=== PATIENT | female | born 1960 | race Caucasian/White ===

== ENCOUNTER 2018-08-25 10:19 | Outpatient (CLI) | payer BC ==
[~2018-08-25] VITALS: Ht 170.2 cm; Wt 80.0 kg
--- NOTE | 2018-08-25 10:40 | NUR ---
ear for PICC evaluation. PICC intact left upper arm. Dressing dated yesterday. No signs or symptoms IV complications except unable to flush PICC catheter. Patient reports she is receiving IV antibiotics at home due to an implanted port infection. The implanted port has been removed. Attempted to flush PICC catheter and unable to flush. Changed and catheter flushed with 10 mL normal saline without difficulty with good blood return noted. No other concerns from patient. Patient is instructed to contact [facility] and/or return to the express unit for issues with PICC line.
[2018-08-25 12:00] VITALS: BP 104/68; PULSE 78; TEMP 97.7
[2018-08-25] MEDS ORDERED: ZYLOPRIM 100MG100 MG PO (14:10)
[2018-08-25] MEDS ORDERED: SOMA 350MG350 MG/TAB PO (14:11)
[2018-08-25] MEDS ORDERED: ATIVAN 0.50.5 MG/TAB PO (14:11)
[2018-08-25] MEDS ORDERED: NEURONTIN300 MG/CAP PO (14:12)
[2018-08-25] MEDS ORDERED: LASIX 20MG TABL20 MG PO (14:12)
[2018-08-25] MEDS ORDERED: PRINIVIL40 MG PO (14:13)
[2018-08-25] MEDS ORDERED: NORCO 325 MG-101 TAB PO (14:13)
[2018-08-25] MEDS ORDERED: TOPROL XL100 MG PO (14:14)
[2018-08-25] MEDS ORDERED: NYSTATIN OR100 MU/ML PO (14:15)
[2018-08-25] MEDS ORDERED: MS CONTIN 115 MG/TAB PO (14:15)
[2018-08-25] MEDS ORDERED: MORPHINE 1515 MG/TAB PO (14:15)
[2018-08-25] MEDS ORDERED: ZYPREXA ZYDIS5 MG PO (14:16)
[2018-08-25] MEDS ORDERED: ZOFRAN 4MG T4 MG/TAB PO (14:16)
[2018-08-25] MEDS ORDERED: PRAVACHOL 40MG40 MG PO (14:17)
[2018-08-25] MEDS ORDERED: K-DUR20 MEQ (14:17)
[2018-08-25] MEDS ORDERED: ULTRAM 50MG TAB50 MG PO (14:18)
== END 2018-08-25 18:00 | disposition home or self-care (01) ==
LOC: EUO 10:19
DX: C34.11 Malignant neoplasm of upper lobe, right bronchus or lung (principal)

== ENCOUNTER 2019-01-19 17:48 | Emergency (ER) | payer BC ==
[~2019-01-19] VITALS: Ht 170.2 cm; Wt 81.8 kg
[~2019-01-19 17:48] MED LIST: ATIVAN 0.50.5 MG/TAB PO; K-DUR20 MEQ; LASIX 20MG TABL20 MG PO; MORPHINE 1515 MG/TAB PO; MS CONTIN 115 MG/TAB PO; NEURONTIN300 MG/CAP PO; NORCO 325 MG-101 TAB PO; NYSTATIN OR100 MU/ML PO; PRAVACHOL 40MG40 MG PO; PRINIVIL40 MG PO; SOMA 350MG350 MG/TAB PO; TOPROL XL100 MG PO; ULTRAM 50MG TAB50 MG PO; ZOFRAN 4MG T4 MG/TAB PO; ZYLOPRIM 100MG100 MG PO; ZYPREXA ZYDIS5 MG PO
[2019-01-19 17:58] VITALS: TEMP 98.7
[2019-01-19 19:02] LABS: BASO # 0.1 (0.0-0.2); BASO % 1.1 % (0.0-2.0); GRAN % 66.7 % (42.2-75.2); LYMPH % 22.1 % (20.0-51.0); MEAN CELL VOLUME 100 fl (80.0-100.0); MEAN CORPUSCULAR HGB CONC 33 g/dl (33.0-37.0); MEAN PLATELET VOLUME 9.2 fl (7.4-10.4); MONO # 0.4 (0.1-0.6); MONO % 9.4 % (1.7-9.3); PLATELET COUNT 246 K/mm3 (130-400); RED BLOOD COUNT 3.01 M/mm3 (4.10-5.30); REDCELL DISTRIBUTION WIDTH-CV 13.5 % (11.5-14.5)
[2019-01-19 19:04] LABS: HEMOGLOBIN 9.8 g/dl (12.5-16.0); MEAN CORPUSCULAR HEMOGLOBIN 33 pg (27.0-31.0)
[2019-01-19 19:15] LABS: ALANINE AMINOTRANSFERASE 11 U/L (9-52); ALBUMIN 3.6 gm/dL (3.5-5.0); ALKALINE PHOSPHATASE 68 U/L (50-136); ANION GAP 8 mmol/L (7-16); AST,SGOT 16 U/L (15-37); BILIRUBIN,TOTAL 0.1 mg/dL (0.0-1.0); BLOOD UREA NITROGEN 19 mg/dL (7-17); C-REACTIVE PROTEIN 2.2 mg/dL (0.0-0.9); CALCIUM 8.6 mg/dL (8.4-10.2); CARBON DIOXIDE 28 mmol/L (22-30); CHLORIDE 104 mmol/L (98-107); CREATININE, serum 0.81 (0.52-1.25); GLUCOSE 98 mg/dL (74-106); POTASSIUM 3.3 mmol/L (3.4-5.0); SODIUM 140 mmol/L (137-145); TOTAL PROTEIN 6.4 gm/dL (6.4-8.2)
[2019-01-19 19:25] LABS: TROPONIN-I < 0.012 ng/mL (0.000-0.035)
[2019-01-19] MEDS ORDERED: DOXYCYCLINE 10100 MG PO (21:33)
[2019-01-19] MEDS ORDERED: PREDNISONE20 MG PO (21:33)
[2019-01-19 22:00] VITALS: BP 141/92; PULSE 110
== END 2019-01-19 22:04 | disposition home or self-care (01) ==
LOC: COL.ER 17:48
PROVIDERS: Emergency Medicine
DX: C34.90 Malignant neoplasm of unspecified part of unspecified bronchus or lung (principal); C78.7 Secondary malignant neoplasm of liver and intrahepatic bile duct; C79.51 Secondary malignant neoplasm of bone; C79.52 Secondary malignant neoplasm of bone marrow; E78.5 Hyperlipidemia, unspecified; I10 Essential (primary) hypertension; J40 Bronchitis, not specified as acute or chronic; Z79.01 Long term (current) use of anticoagulants; Z87.891 Personal history of nicotine dependence
CPT/HCPCS: J7030; J7512; Q9967

== ENCOUNTER 2019-02-04 14:51 | Inpatient (IN) | payer BC ==
[2019-02-04] VITALS (196 sets, daily range): BP systolic 96; BP diastolic 65; PULSE 99; TEMP 97.6; O2SAT 89–99
[~2019-02-04] VITALS: Ht 167.6 cm; Wt 84.6 kg
[~2019-02-04 14:51] MED LIST changes: +DOXYCYCLINE 10100 MG PO; +LOPRESSOR100 MG PO; +PREDNISONE20 MG PO; -TOPROL XL100 MG PO
[2019-02-04 15:39] LABS: BASO # 0.1 (0.0-0.2); BASO % 1.2 % (0.0-2.0); GRAN # 3.4 (1.4-6.5); GRAN % 65.8 % (42.2-75.2); HEMOGLOBIN 10.4 g/dl (12.5-16.0); LYMPH % 19.8 % (20.0-51.0); MEAN CELL VOLUME 103 fl (80.0-100.0); MEAN CORPUSCULAR HEMOGLOBIN 32 pg (27.0-31.0); MEAN CORPUSCULAR HGB CONC 31 g/dl (33.0-37.0); MEAN PLATELET VOLUME 9.3 fl (7.4-10.4); MONO # 0.7 (0.1-0.6); MONO % 12.8 % (1.7-9.3); PLATELET COUNT 192 K/mm3 (130-400); RED BLOOD COUNT 3.24 M/mm3 (4.10-5.30); REDCELL DISTRIBUTION WIDTH-CV 13.5 % (11.5-14.5)
[2019-02-04 15:42] LABS: HEMATOCRIT 33.3 % (37.0-47.0)
[2019-02-04 15:46] LABS: PROTHROMBIN TIME 12.1 SECONDS (9.7-12.8)
[2019-02-04 15:49] LABS: PARTIAL THROMBOPLASTIN TIME 31.8 SECONDS (26.0-37.0)
[2019-02-04 15:51] LABS: ALBUMIN 3.6 gm/dL (3.5-5.0); ANION GAP 8 mmol/L (7-16); BILIRUBIN,TOTAL 0.2 mg/dL (0.0-1.0); BLOOD UREA NITROGEN 19 mg/dL (7-17); CALCIUM 8.8 mg/dL (8.4-10.2); CARBON DIOXIDE 27 mmol/L (22-30); CHLORIDE 106 mmol/L (98-107); CREATININE, serum 1.83 (0.52-1.25); GLUCOSE 97 mg/dL (74-106); POTASSIUM 4.2 mmol/L (3.4-5.0); SODIUM 141 mmol/L (137-145); TOTAL PROTEIN 6.3 gm/dL (6.4-8.2)
[2019-02-04 15:52] LABS: ALANINE AMINOTRANSFERASE 22 U/L (9-52); ALKALINE PHOSPHATASE 66 U/L (50-136); AST,SGOT 21 U/L (15-37); C-REACTIVE PROTEIN 1.7 mg/dL (0.0-0.9)
[2019-02-04 16:01] LABS: TROPONIN-I < 0.012 ng/mL (0.000-0.035)
--- NOTE | 2019-02-04 17:45 | NUR ---
Arrives to unit via cart acc by ED staff, transfers c some difficulty from cart to bed. Moderate delay noted with response to questions and cues. Exhibits expressive aphashia with mild slurring. No visual deficits. Generalized weakness, all extremeties strength equal(moderate weakness-generalized) afebrile. On 2L Oxygen with spo2 low 90s. Describes back and rib pain requesting medication. Has fentanyl patch to anterior chest right side. Per patient last chagned two days ago.
[2019-02-04] MEDS ORDERED: FENTANYL 25 MCG TD (18:42)
--- NOTE | 2019-02-04 19:15 | NUR ---
RECEIVED REPORT FROM RODRÍGUEZ BLOCK. PT SITTING UP IN BED TALKING TO AT BEDSIDE. O2 ON 1L VIA NC. VSS. CALL LIGHT WITHIN REACH. NO ACTUE S/S OF DISTRESS NOTED AT THIS TIME.
[2019-02-04 19:56] LABS: COLLECTION METHOD CLEAN CATCH
[2019-02-04 20:09] LABS: HYALINE CAST >12 /lpf; MUCOUS Present /lpf; PH 5 (5-8); URINE APPEARANCE Hazy; URINE BACTERIA None Seen /hpf; URINE BILIRUBIN Negative (NEGATIVE); URINE BLOOD Negative (NEGATIVE); URINE COLOR Yellow; URINE GLUCOSE Negative (NEGATIVE); URINE KETONE Negative (NEGATIVE); URINE LEUKOCYTE ESTERASE Negative (NEGATIVE); URINE NITRATE Negative (NEGATIVE); URINE PROTEIN(semi-quant) 1+ (NEGATIVE); URINE RBC 0-2 /hpf; URINE UROBILINOGEN Negative (NEGATIVE)
[2019-02-05] VITALS (496 sets, daily range): BP systolic 119–171; BP diastolic 92–109; PULSE 78–126; TEMP 97.9–99.2; O2SAT 86–100
[2019-02-05 05:20] LABS: BASO % 0.8 % (0.0-2.0); GRAN # 2.8 (1.4-6.5); GRAN % 77.1 % (42.2-75.2); LYMPH # 0.5 (1.2-3.4); LYMPH % 13.1 % (20.0-51.0); MEAN CELL VOLUME 101 fl (80.0-100.0); MEAN CORPUSCULAR HGB CONC 33 g/dl (33.0-37.0); MEAN PLATELET VOLUME 9.9 fl (7.4-10.4); MONO # 0.3 (0.1-0.6); MONO % 8.4 % (1.7-9.3); PLATELET COUNT 197 K/mm3 (130-400); RED BLOOD COUNT 3.01 M/mm3 (4.10-5.30); REDCELL DISTRIBUTION WIDTH-CV 13.2 % (11.5-14.5)
[2019-02-05 05:22] LABS: HEMATOCRIT 30.4 % (37.0-47.0); HEMOGLOBIN 9.9 g/dl (12.5-16.0); MEAN CORPUSCULAR HEMOGLOBIN 33 pg (27.0-31.0)
[2019-02-05 05:34] LABS: CALCIUM 8.8 mg/dL (8.4-10.2); CREATININE, serum 0.77 (0.52-1.25); POTASSIUM 5.2 mmol/L (3.4-5.0)
--- NOTE | 2019-02-05 07:15 | NUR ---
Report received from Almas ARREGUIN and care resumed.
--- NOTE | 2019-02-05 08:15 | NUR ---
Assessment complete. See charting. Pt rated pain 4/10 in back but denies any need for meds at this time. Did state she wanted to get out of bed. Pt helped up to recliner with standby assist. BP and HR are elevated. Home meds for this currently on hold. Will touch base with doctor regarding this. Will continue to follow.
--- NOTE | 2019-02-05 09:44 | NUR ---
Dr Corral in to see pt at this time.
[2019-02-05 10:42] LABS: CALCIUM 9.1 mg/dL (8.4-10.2); CREATININE, serum 0.73 (0.52-1.25); POTASSIUM 4.1 mmol/L (3.4-5.0)
--- NOTE | 2019-02-05 10:44 | NUR ---
Patient was sleeping.
[2019-02-05] MEDS ORDERED: ELIQUIS 5MG PO (15:30)
[2019-02-05] MEDS ORDERED: DECADRON 4MG TAB4 MG PO (15:31)
--- NOTE | 2019-02-05 15:52 | NUR ---
Pt given discharge instuctions. INT dc'd. Pt taken out by wheelchair by private car for discharge.
[2019-02-05 16:45] LABS: FOLATE (FOLIC ACID) 13.9 ng/mL (7.0-31.4)
== END 2019-02-05 15:50 | disposition home or self-care (01) | DRG 54 ==
LOC: COL.ER 14:51 → ICU 16:40
PROVIDERS: Emergency Medicine; Physician Assistant; ADMIT Family Medicine
DX: C79.31 Secondary malignant neoplasm of brain (principal); G93.6 Cerebral edema; C34.90 Malignant neoplasm of unspecified part of unspecified bronchus or lung; C78.7 Secondary malignant neoplasm of liver and intrahepatic bile duct; N17.9 Acute kidney failure, unspecified; E78.5 Hyperlipidemia, unspecified; I95.9 Hypotension, unspecified; R00.0 Tachycardia, unspecified; D53.9 Nutritional anemia, unspecified; F41.9 Anxiety disorder, unspecified; F32.9 Major depressive disorder, single episode, unspecified; E87.6 Hypokalemia; G89.29 Other chronic pain; M54.9 Dorsalgia, unspecified; M10.9 Gout, unspecified; Z86.711 Personal history of pulmonary embolism; Z79.01 Long term (current) use of anticoagulants; Z87.891 Personal history of nicotine dependence
CPT/HCPCS: 99222-AI; A9585; J1100; J7030; J8540

== ENCOUNTER 2019-04-11 09:25 | Emergency (ER) | payer BC, MEDICAID ==
[~2019-04-11] VITALS: Ht 170.2 cm; Wt 78.6 kg
[2019-04-11 09:34] VITALS: TEMP 98.1
[2019-04-11 11:13] LABS: MEAN CELL VOLUME 98 fl (80.0-100.0); MEAN CORPUSCULAR HEMOGLOBIN 31 pg (27.0-31.0); MEAN CORPUSCULAR HGB CONC 32 g/dl (33.0-37.0); MEAN PLATELET VOLUME 9.2 fl (7.4-10.4); PLATELET COUNT 155 K/mm3 (130-400); REDCELL DISTRIBUTION WIDTH-CV 14.3 % (11.5-14.5)
[2019-04-11 11:16] LABS: ALBUMIN 3.3 gm/dL (3.5-5.0); BILIRUBIN,TOTAL 0.4 mg/dL (0.0-1.0); C-REACTIVE PROTEIN 2.7 mg/dL (0.0-0.9); CREATININE, serum 0.69 (0.52-1.25); HEMATOCRIT 31.4 % (37.0-47.0); POTASSIUM 3.9 mmol/L (3.4-5.0); TOTAL PROTEIN 5.9 gm/dL (6.4-8.2)
[2019-04-11 11:53] VITALS: BP 82/61; PULSE 96
[2019-04-11 11:59] LABS: ANISOCYTOSIS 1+; BAND 7 % (0-10); LYMPHOCYTE 6 % (20.0-51.0); METAMYELOCYTE 1 % (0-0); NEUTROPHILS 83 % (42.0-75.2); OVALOCYTES 1+; PLATELET ESTIMATE NORMAL (NORMAL)
== END 2019-04-11 11:55 | disposition home or self-care (01) ==
LOC: COL.ER 09:25
PROVIDERS: Physician Assistant
DX: C34.90 Malignant neoplasm of unspecified part of unspecified bronchus or lung (principal); C78.7 Secondary malignant neoplasm of liver and intrahepatic bile duct; C79.51 Secondary malignant neoplasm of bone; E78.5 Hyperlipidemia, unspecified; J90 Pleural effusion, not elsewhere classified; I10 Essential (primary) hypertension; F41.9 Anxiety disorder, unspecified; Z79.01 Long term (current) use of anticoagulants
CPT/HCPCS: J1170; J2405

== ENCOUNTER → 2019-04-11 | Outpatient (CLI) | payer BC, MEDICAID ==
[~2019-04-11] VITALS: Ht 167.6 cm; Wt 84.9 kg
[~2019-04-11] MED LIST changes: +DECADRON 4MG TAB4 MG PO; +ELIQUIS 5MG PO; +FENTANYL 25 MCG TD; +KLOR-CON SPRIN10 MEQ PO; +LEVAQUIN 750MG750 M1 PO
[2019-04-11 12:15] VITALS: BP 95/66; PULSE 107
--- NOTE | 2019-04-11 13:19 | NUR ---
procedure cancelled by Dr Keating, not enough fluid
== END ==
LOC: COL.RAD 12:01
DX: C34.11 Malignant neoplasm of upper lobe, right bronchus or lung (principal); R06.02 Shortness of breath